=== PATIENT | female | born 1945 | race African-American/Black ===

== ENCOUNTER 2018-11-24 06:54 | Emergency (ER) | payer OTHER ==
[~2018-11-24] VITALS: Ht 165.1 cm; Wt 64.0 kg
[2018-11-24] MEDS ORDERED: HYDROCODONE/ACETAMINOPHEN 5/325MG TABLET PO ONE (11:00)
[2018-11-24] MEDS ORDERED: KETOROLAC 15MG/ML VIAL IV ONE (11:00)
[2018-11-24 16:10] VITALS: BP 150/79
== END 2018-11-24 16:20 | disposition home or self-care (01) ==
LOC: ER 06:54
DX: S82.831A Other fracture of upper and lower end of right fibula, initial encounter for closed fracture (principal); I10 Essential (primary) hypertension; V03.10XA Pedestrian on foot injured in collision with car, pick-up truck or van in traffic accident, initial encounter; Y93.89 Activity, other specified; Y92.488 Other paved roadways as the place of occurrence of the external cause
CPT/HCPCS: 29515; 71045; 73030; 73502; 73562; 73610; 96374; 99283; J1885